=== PATIENT | female | born 1995 | race Caucasian/White ===

== ENCOUNTER → 2021-10-12 15:34 | Outpatient (CLI) | payer OTHER, SELFPAY ==
[2021-10-12 17:30] LABS: COVID19 -Nasal RAPID Negative (Negative)
== END ==
PROVIDERS: Referring Provider Otolaryngology; Visit Provider Family Medicine Sleep Medicine
DX: Z20.822 Contact with and (suspected) exposure to COVID-19 (principal)
CPT/HCPCS: 87635; C9803

== ENCOUNTER 2021-10-14 12:49 | Day surgery (SDC) | payer OTHER, SELFPAY ==
[2021-10-11 14:09] VITALS: BMI 20.7
[2021-10-14] VITALS (8 sets, daily range): BP systolic 90–148; BP diastolic 61–101; PULSE 70–102; RESP 14–20; TEMP 36.2–37.3; O2SAT 97–117; BMI 20.7
[2021-10-14] MEDS: LACTATED RINGERS 1,000 ML 42 ML IV (13:18)
--- NOTE | 2021-10-14 14:19 | PM.PREOP ---
Pre-operative Note Interval Note History & Physical reviewed/Exam performed by Physician: Yes Changes to H&P: No
--- NOTE | 2021-10-14 14:20 | P.HP_ITS ---
History of Present Illness History of Present Illness Date Patient Seen: 10/14/21 Time Patient Seen: 14:20 Chief complaint: Chronic tonsillitis Narrative: 25-year-old female last seen in clinic 05/19/2021 with chronic history of irritated tonsils presents for tonsillectomy and possible adenoidectomy. Chronic halitosis frequent tonsil stones and foreign body sensation. No interval health changes, no recent cough, cold, or fever. Patient History Medical History Chronic tonsillitis Halitosis Hypothyroidism Throat pain Tonsil stone Family & Social History Social History: household members spouse Tobacco & Substance use: Smoking Status Never smoker alcohol intake current Substance Use Type marijuana Meds Home Medications and Allergies Home Medications Medication Instructions Recorded Confirmed Type levothyroxine 100 mcg tablet 100 mcg PO DAILY 10/14/21 10/14/21 History (Synthroid) Allergies Allergy/AdvReac Type Severity Reaction Status Date / Time No Known Drug Allergies Allergy Verified 10/14/21 13:05 Review of Systems Review of Systems Narrative: Negative except as described in the HPI Exam Vital Signs (past 8 hours): - 10/14/21 13:12 Temperature 98.1 F Pulse Rate 71 Respiratory Rate 20 Blood Pressure 114/83 Pulse Oximetry 97 Oxygen Delivery Method Room Air Narrative Exam Narrative: Well-developed well-nourished female in no acute distress, 2+ tonsils, heart regular rate and rhythm without murmur, lungs clear to auscultation bilaterally Assessment & Plan Assessment & Plan narrative: Assessment: Chronic tonsillitis, tonsil stone, throat pain, halitosis Plan: Following discussion of the material risks benefits complications and alternatives, the patient elected to proceed with tonsillectomy and possible ad enoidectomy as an outpatient. Time Spent With Patient Critical Care time: I spent a total of [] minutes of critical care time on this patient's care today; this time is exclusive of procedural time.
--- NOTE | 2021-10-14 14:23 | PM.OP.1 ---
Operative Date/Time/Diagnoses Date of procedure: 10/14/21 Time of procedure: 15:09 Pre-op diagnosis: Chronic tonsillitis, throat pain, tonsil stone, halitosis Post-op diagnosis: same Procedure & Clinicians Procedure: Adenotonsillectomy Same procedure as scheduled: Yes Indications: 26-year-old female with the above diagnoses incompletely managed with medical therapy presents for the above procedure. Following discussion of the material risks benefits complications alternatives, she elected to proceed. Surgeon: Heber You Click Yes if Unassisted: Yes Anesthesia Type: General and Local Operative Notes Findings: Intact palate, single uvula, 2+ tonsils with stones, 1+ adenoids Estimated Blood Loss (mL): 5 Procedure in detail: Following identification and confirmation of consent the patient was brought to the operating room suite and placed in the supine position. General endotracheal anesthesia was administered. A head wrap, shoulder roll, and mouth gag were placed and a red rubber catheter was inserted through the nostril and out the mouth to retract the soft palate. Minimally obstructive adenoid tissue was ablated with suction electrocautery on a setting of 40, without injury to the eustachian tube orifices or choana. The left tonsil was retracted medially and suction electrocautery on a setting of 30 was used to dissect the tonsil in a subcapsular plane, followed by hemostasis with the same. This process was repeated on the right side with identical findings. The tonsillar fossae were superficially infiltrated bilaterally with a 1:1 mixture of 1% lidocaine 1 100,000 epinephrine and 0.25% Marcaine 1 to [id number] epinephrine. Mouth gag and rubber catheter were removed and the patient was extubated in the operating room and taken to the recovery room in stable condition without known complication. Complications: none Post-operative Condition: stable Disposition: same day surgery Plan for aftercare: Push fluids, alternate Tylenol and Advil every 3 hours for baseline pain control, oxycodone for breakthrough pain. Soft diet 2 full weeks, no heavy lifting or straining 2 weeks.
--- NOTE | 2021-10-14 14:50 | SUR.OPER ---
Supine on padded OR bed, head on pillow, arms padded and tucked at sides, legs uncrossed, safety belt at thigh, tape over blanket over lower legs .
--- NOTE | 2021-10-14 14:51 | SUR.OPER ---
No prep needed for the procedure. Warm blankets used intraop, no cayetano hugger per the anesthesiologist
[2021-10-14] MEDS: BUPIVACAINE 0.25% (PF) VIAL 30 ML INJ (14:54)
[2021-10-14] MEDS: LIDOCAINE 1% W/EPI 20 ML INJ (14:55)
[2021-10-14] MEDS: ACETAMINOPHEN 325 MG TABLET 650 MG PO (15:34)
--- NOTE | 2021-10-14 15:47 | SUR.PHASEI ---
10/14/21-1518- Recieved from OR, no active bleeding noted. hob elevated. no nausea. c/o difficulty swallowing. Reassured. Given ice chips did well 1530-warm blankets on for shivering. 1545-no bleeding orally noted. wide awake and alert.
--- NOTE | 2021-10-14 16:11 | SUR.PHASEII ---
10/14/21-1600-iv converted to prn port. no bleeding orally seen. home care instructions given/reviewed with patient. vss. to phase 2 to get dressed for discharge.
== END 2021-10-14 16:36 | disposition home or self-care (01) ==
PROVIDERS: Referring Provider Otolaryngology; Visit Provider Otolaryngology
PROC: (CPT 42821; principal; 2021-10-14 13:30)
DX: J35.01 Chronic tonsillitis (principal); J35.8 Other chronic diseases of tonsils and adenoids
CPT/HCPCS: 42821; 81025; J1100; J2405; J2704